=== PATIENT | male | born 1955 | race Caucasian/White ===

== ENCOUNTER 2021-08-30 11:03 | Emergency (ER) | payer MEDICARE ==
[~2021-08-30] VITALS: Ht 180.3 cm; Wt 90.7 kg
[2021-08-30 11:20] LABS: Chloride (POC) 105 mmol/L (98-108); Creatinine (POC) 1.1 mg/dL (0.8-1.3); Glucose (ISTAT POC) 100 mg/dL (70-99); Hemoglobin (POC) 15.3 g/dL (13.5-17.5); Sodium (POC) 138 mmol/L (135-148); Total CO2 (POC) 17 mmol/L (21-32)
[2021-08-30] MEDS ORDERED: ATEN50 PO (11:48)
[2021-08-30] MEDS ORDERED: ATOR40TA PO (11:49)
[2021-08-30] MEDS ORDERED: Ramipril10 MG PO (11:49)
[2021-08-30] MEDS ORDERED: ZOFRAN8 MG PO (11:50)
== END 2021-08-30 13:47 | disposition home or self-care (01) ==
LOC: ER 11:03
PROVIDERS: Emergency Medicine
DX: R56.9 Unspecified convulsions (principal); C71.9 Malignant neoplasm of brain, unspecified; Z79.899 Other long term (current) drug therapy; Z91.14 Patient's other noncompliance with medication regimen
CPT/HCPCS: 70450; 80047; 85014